=== PATIENT | female | born 1995 | race Asian ===

== ENCOUNTER → 2020-01-15 | Outpatient (CLI) | payer OTHER ==
[2018-12-24 06:28] VITALS: BP 90/53
[~2020-01-15] MED LIST: IBUP-1027 PO; PNV1TABL25 PO
--- NOTE | 2020-01-15 16:32 | CARD ---
MR#: [id number] Date of Study: 01/15/2020 Ordering Physician: SUMMER MURILLO, Referring Physician: SUMMER MURILLO, Tech: Destini Fonseca RDCS APPROVED REPORT INDICATION Chest Pain PROCEDURE The patient underwent an Exercise Stress Test using the James Protocol. Blood pressure, heart rate, a nd EKG were monitored. An Echocardiogram was performed by measurement technician in four stages in quad fashion. At peak stress four se lected images were obtained and placed side by side with resting images for comparison. STRESS ECHO FINDINGS The resting Echocardiogram showed normal left ventricular systolic contractility with an estimated Ej ection Fraction of about 60 %. The Resting Echocardiogram showed normal augmentation of myocardial wall segments using a 16 segment model. The Stress Echocardiogram showed normal augmentation of myocardial wall segments using a 16 segment m zully. The Stress Echocardiogram left ventricular systolic contractility has an estimated Ejection Fraction of about 65%. Test Type: Exercise Stress Nurse/Tech: Pili Hood R.N. Test Indications: c/p Cardiac History and Allergies: See [employer] EMR NKDA Medications: see EHR Medical History: see EHR Resting ECG: SR Resting Heart Rate: 69 bpm Resting Blood Pressure: 85/39mmHg Pretest Chest Pain: Atypical angina Stress Symptoms fatigue POST EXERCISE Reason for Termination: Reached target heart rate Target HR: Yes Max HR: 171 bpm 88% of Maximum Predicted HR: 195 bpm Exercise duration: 9:00 min:sec, 3 Stage Exercise capacity: 10.1METs Max Blood Pressure: 144/60mmHg Blood Pressure response to exercise: Normal blood pressure response during stress. Heart Rate response to exercise: wnl Chest Pain: No. no increase or change from abnormal baseline Arrhythmia: No. ST Change: No. INTERPRETATION Stress EKG Conclusion: The resting EKG showed a normal sinus rhythm. The stress EKG showed no significant changes from baseline. No EKG evidence of stress-induced ischemia. Preliminary Notification Critical Value: No <Conclusion> Good exercise tolerance. No EKG evidence of stress-induced ischemia. Resting echocardiogram shows normal left ventricular systolic function. Stress echocardiogram shows normal response to exertion with no regional wall motion abnormalities. Low risk treadmill stress echo. Signed by : Roque Benoit MD Electronically Approved : 01/15/2020 16:31:39
== END | disposition home or self-care (01) ==
LOC: ECHO 12:59
PROVIDERS: ATTEND Internal Medicine
DX: R07.89 Other chest pain (principal)
CPT/HCPCS: 93017; 93350